=== PATIENT | male | born 1965 | race Caucasian/White ===

== ENCOUNTER → 2021-04-17 15:05 | Outpatient (CLI) | payer OTHER, SELFPAY ==
--- NOTE | ~2021-04-17 | XR_ITS ---
EXAMINATION: XR foot LT 2V EXAM DATE: 04/17/2021 15:27 INDICATION: M79.89 - Other specified soft tissue disorders; fall 04/04. TECHNIQUE: Frontal and lateral projections of the left foot. There is no prior study for comparison . FINDINGS: There is fracture through the neck of the left 2nd proximal phalanx with a few millimeters of displacement. Slightly indistinct fracture margin, but no callus formation. Probably result of pa tient's injury on 04/04. There is overlying soft tissue swelling. There is hallux valgus and bunion formation. 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 IMPRESSION: 1. Left 2nd proximal phalangeal neck fracture with 2 mm displacement. 2. Hallux valgus. 3. Bunion. Reviewed, dictated and finalized at location B.
== END ==
PROVIDERS: PCP Family Medicine; Visit Provider Nurse Practitioner Family
DX: S92.512A Displaced fracture of proximal phalanx of left lesser toe(s), initial encounter for closed fracture (principal); M20.12 Hallux valgus (acquired), left foot; M21.612 Bunion of left foot; M79.89 Other specified soft tissue disorders
CPT/HCPCS: 73620